=== PATIENT | female | born 2005 | race African-American/Black ===

== ENCOUNTER 2024-07-28 21:45 | Emergency (ER) | payer OTHER ==
[2024-07-28 21:54] VITALS: BP 134/86; PULSE 86; RESP 18; TEMP 99; BMI 39.9
[2024-07-28] MEDS ORDERED: ACETAMINOPHEN 500 MG TABLET (FP) ONE (22:24)
[2024-07-28] MEDS: ACETAMINOPHEN 500 MG TABLET (FP) PO ONE (22:28)
== END 2024-07-28 22:32 | disposition home or self-care (01) ==
LOC: JER 21:45 → JERFT 21:45
DX: R05.9 Cough, unspecified (principal); M79.10 Myalgia, unspecified site; J06.9 Acute upper respiratory infection, unspecified; R09.81 Nasal congestion; Z20.822 Contact with and (suspected) exposure to COVID-19
CPT/HCPCS: 0241U-QW; 99283-25